=== PATIENT | male | born 1950 | race Caucasian/White ===

== ENCOUNTER 2021-03-01 02:54 | Emergency (ER) | payer MEDICARE ==
[~2021-03-01] VITALS: Ht 172.7 cm; Wt 110.0 kg
[~2021-03-01 02:54] MED LIST: DOXA8TAB63 PO; DOXAZOSIN; EZET10TA70 PO; FENO160T PO; FURO-93 PO; GABA300C10 PO; LIDO700A20 TD; LISI-167 PO; LOSARTAN PO; METFORMIN PO; METO-93 PO; OMEG1CAP2 PO; OMEP-110 PO; PANT40TA3 PO; POTA20TA14 PO; PROAIR INH; VITAMIN D 3 PO
[2021-03-01] MEDS ORDERED: HYDROcodone/APAP 5/325 TABLET PO ONE (03:30)
--- NOTE | 2021-03-01 03:32 | NUR ---
PT REFUSED PAIN MEDICATION ORDER PER ERP. "THAT'S NOT A STONG ENOUGH MED, I DONT EVEN CALL THAT A PAIN PILL. I DON'T NEED IT". ERP AWARE
[2021-03-01] MEDS ORDERED: HYDROcodone/APAP 5/325 TABLET ONE (03:46)
--- NOTE | 2021-03-01 03:55 | NUR ---
US AT BEDSIDE
[2021-03-01 04:03] VITALS: BP 167/71
[2021-03-01 04:40] LABS: MICROSCOPIC NOT IND
--- NOTE | 2021-03-01 05:20 | NUR ---
Patient given discharge instructions and they have confirmed that they understand the instructions. Patient ambulatory with steady gait.
== END 2021-03-01 05:22 | disposition home or self-care (01) ==
LOC: ED 03:40
DX: N50.812 Left testicular pain (principal); R10.32 Left lower quadrant pain; I10 Essential (primary) hypertension; E11.9 Type 2 diabetes mellitus without complications; J44.9 Chronic obstructive pulmonary disease, unspecified
CPT/HCPCS: 76870; 81003; 99284

== ENCOUNTER 2021-07-10 13:24 | Emergency (ER) | payer MEDICARE ==
[~2021-07-10] VITALS: Ht 172.7 cm; Wt 112.0 kg
--- NOTE | 2021-07-10 13:42 | NUR ---
geriatric assistant: Pt ambulatory to room from lobby at this time.
--- NOTE | 2021-07-10 13:45 | NUR ---
ASSUMED CARE OF PT AT THIS TIME FROM LOBBY. AMBULATORY TO ROOM WITH STEADY GAIT. REBECCA BAUGH AT BEDSIDE FOR EVALUATION. PT REPORTS "CONCERNED ABOUT MY BLOOD PRESSURE VARYING, BEEN HIGH 180'S OVER 90'S, DIZZY ON AND OFF BUT NOT RIGHT NOW, SO THOUGHT I SHOULD GET CHECKED OUT." PT DENIES DIZZINESS, CAO, CP, SOB, COUGH, FEVER, N/V/D, VISUAL CHANGES OR DIFFICULTIES. ASSESSMENT COMPLETED. NEURO AND CMS INTACT. NO CODE NEURO PER REBECCA BAUGH AND DR. CASPER. CONT PULSE OX, BP, CARDIAC MONITORS APPLIED. VSS. SR ON MONITOR. CALL LIGHT IN REACH. FALL PRECAUTIONS IN PLACE. A&OX4.
--- NOTE | 2021-07-10 13:50 | NUR ---
DR. CASPER AT BEDSIDE FOR EVALUATION
[2021-07-10 14:17] LABS: BASOPHILS % (AUTO) 1 % (0-1); EOSINOPHILS % (AUTO) 1 % (1-7); LYMPHOCYTES % (AUTO) 26 % (22-44); MEAN CORPUSCULAR HEMOGLOBIN 28.7 pg (27.5-34.5); MEAN CORPUSCULAR HGB CONC 33.4 g/dL (33.2-36.2); MEAN PLATELET VOLUME 8.8 fL (7.4-10.4); MONOCYTES % (AUTO) 5 % (2-9); NEUTROPHILS % (AUTO) 67 % (42-75); PLATELET COUNT 146 x10^3/uL (130-400); RED BLOOD COUNT 4.73 x10^6/uL (4.38-5.82); RED CELL DISTRIBUTION WIDTH 15.2 % (9.4-14.8)
[2021-07-10 14:30] LABS: ALBUMIN 4.1 g/dL (3.4-5.0); ANION GAP 6 mmol/L (5-15); CALCIUM 8.7 mg/dL (8.5-10.1); CHLORIDE 108 mmol/L (98-107)
--- NOTE | 2021-07-10 14:30 | NUR ---
PT AWARE UA SAMPLE NEEDED, DENIES URGE TO URINATE AT THIS TIME. ERP AND PA AWARE, NO NEW ORDERS RECEIVED. PT RESTING COMFORTABLY. VSS. DENIESS DIZZINESS, CP OR ANY PAIN. CALL LIGHT IN REACH. WILL CONTINUE TO MONITOR.
--- NOTE | 2021-07-10 14:35 | NUR ---
ACCESS SERVICES REPRESENTATIVE JOE AT BEDSIDE FOR ORTHOSTATIC VITALS PER MD REQUEST
[2021-07-10 14:39] LABS: ALANINE AMINOTRANSFERASE 47 U/L (12-78); ALKALINE PHOSPHATASE 39 U/L (45-117); BILIRUBIN,TOTAL 0.6 mg/dL (0.2-1.0); CHOL/HDL RATIO 7.8; CHOLESTEROL, TOTAL 204 mg/dL (140-239); CREATININE 1.25 mg/dL (0.7-1.3); HDL CHOL % 13 % (26-37); HDL CHOLESTEROL (DIRECT) 26 mg/dL (40-60); TOTAL PROTEIN 7.2 g/dL (6.4-8.2); TRIGLYCERIDES 420 mg/dL (50-200); TROPONIN I < 0.015 ng/mL (0.000-0.045)
[2021-07-10] MEDS ORDERED: SODIUM CHLORIDE 0.9% 1,000ML IVBOLUS ONE (15:30)
[2021-07-10] MEDS ORDERED: SODIUM CHLORIDE FLUSH 10ML SYR IVF ONE (15:30)
--- NOTE | 2021-07-10 15:35 | NUR ---
CLEAN CATCH UA COLLECTED AND SENT TO LAB. PT USED URINAL AT BEDSIDE PER REQUEST, DENIED OFFER TO AMBULATE TO RESTROOM. RESTING COMFORTABLY. VSS. BP IMPROVED FROM ARRIVAL. DENIES PAIN, CP, SOB, DIZZINESS, CAO. CALL LIGHT IN REACH. FALL PRECAUTIONS IN PLACE. AWAITING UA RESULTS AND RECHECK FROM ERP
--- NOTE | 2021-07-10 15:52 | NUR ---
DR. CASPER AT BEDSIDE DISCUSSING POC AND HOME CARE, FOOD/EATING CHOICES. TO START IV AND ADMIN IVF PER MD AT THIS TIME. VSS. CALL LIGHT IN REACH. FALL PRECAUTIONS IN PLACE.
--- NOTE | 2021-07-10 16:01 | NUR ---
DR. CASPER REMAINS AT BEDSIDE. IV IN PLACE. IVF INFUSING. PT TO BE DISCHARGED S/P IVF. VSS. CALL LIGHT IN REACH. DENIES ANY PAIN, DIZZINESS, CAO, CP, SOB,N/V/D.
[2021-07-10 16:10] LABS: MICROSCOPIC NOT IND
--- NOTE | 2021-07-10 17:00 | NUR ---
IVF STILL INFUSING. WILL DC PT WHEN COMPLETE PER MD. NO CHANGES, VSS. RESTING COMFORTABLY. CALL LIGHT IN REACH. FALL PRECAUTIONS IN PLACE
[2021-07-10 17:50] VITALS: BP 163/77
--- NOTE | 2021-07-10 18:12 | NUR ---
Patient given discharge instructions and they have confirmed that they understand the instructions. Patient ambulatory with steady gait.
== END 2021-07-10 18:13 | disposition home or self-care (01) ==
LOC: ED 18:07
DX: R42 Dizziness and giddiness (principal); I10 Essential (primary) hypertension; E11.9 Type 2 diabetes mellitus without complications; R63.8 Other symptoms and signs concerning food and fluid intake; E88.81 Metabolic syndrome and other insulin resistance; E78.00 Pure hypercholesterolemia, unspecified; J44.9 Chronic obstructive pulmonary disease, unspecified; Z87.891 Personal history of nicotine dependence
CPT/HCPCS: 36415; 71045; 80053; 80061; 81003; 82306; 83036; 83735; 84443; 84484; 85025; 93005; 96360; 96361; 99285; J7030; 82962